=== PATIENT | female | born 1965 | race Two or more races ===

== ENCOUNTER → 2024-06-20 | Outpatient (CLI) | payer OTHER, SELFPAY ==
--- NOTE | 2024-06-20 10:51 | EKG_ITS ---
[facility] Test Date: 2024-06-20 Pat Name: SASHA HUSAIN Department: Room: - Gender: Female Licensing Coordinator: JOYCE STUDENT : 1965 Requested By: Genia Warren Order Number: [id number] Reading MD: Genia Warren Measurements Intervals [place] Rate: 63 P: 40 FL: 154 QRS: -7 QRSD: 89 T: 64 QT: 400 QTc: 410 Interpretive Statements SINUS RHYTHM LOW QRS VOLTAGE IN PRECORDIAL LEADS Compared to ECG 09/14/2022 14:57:49 Low QRS voltage now present /store/S0/[id number].pdf
[2024-06-20 11:07] LABS: Anion Gap 8 (7-16); BUN/Creatinine Ratio 26 Ratio (12-20); Blood Urea Nitrogen 18 mg/dL (9-23); Calcium 9.5 mg/dL (8.3-10.6); Carbon Dioxide 28.5 mMol/L (20.0-31.0); Chloride 105 mMol/L (98-107); Creatinine (Component) 0.7 mg/dL (0.6-1.3); Glucose 117 mg/dL (74-106); Osmolality,Calculated 284 (275-295); Potassium 4.3 mMol/L (3.4-5.1); Sodium 141 mMol/L (136-145); eGFR > 60 See Note
== END | disposition home or self-care (01) ==
PROVIDERS: PCP Plastic Surgery; Referring Provider Plastic Surgery; Visit Provider Plastic Surgery
DX: Z01.818 Encounter for other preprocedural examination (principal); M24.231 Disorder of ligament, right wrist
CPT/HCPCS: 36415; 80048; 93005